=== PATIENT | male | born 1975 | race Native Hawaiian/Other Pacific Islander ===

== ENCOUNTER 2019-03-11 11:21 | Emergency (ER) | payer OTHER ==
[~2019-03-11] VITALS: Ht 182.9 cm; Wt 90.7 kg
[2019-03-11 11:35] VITALS: TEMP 98.1
[2019-03-11 13:00] VITALS: BP 133/84
== END 2019-03-11 13:00 | disposition home or self-care (01) ==
LOC: ED 11:21
DX: M54.5 Low back pain (principal); M62.830 Muscle spasm of back
CPT/HCPCS: 96372; 99282; J1885